=== PATIENT | female | born 1970 | race Caucasian/White ===

== ENCOUNTER 2016-12-08 13:26 | Emergency (ER) | payer SELFPAY ==
[~2016-12-08] VITALS: Ht 162.6 cm; Wt 107.0 kg
[2016-12-08] MEDS ORDERED: UNKNOWN BP MED (13:37)
[2016-12-08] MEDS ORDERED: HYDROCODONE/ACETAMINOPHEN 5/325MG TABLET PO ONE (15:15)
[2016-12-08 15:17] LABS: CLARITY URINE CLOUDY (CLEAR); COLOR URINE YELLOW (YELLOW); GLUCOSE URINE NEGATIVE (NEGATIVE); KETONES URINE NEGATIVE (NEGATIVE); LEUKOCYTE ESTERASE URINE NEGATIVE (NEGATIVE); NITRITE URINE NEGATIVE (NEGATIVE); OCCULT BLOOD URINE NEGATIVE (NEGATIVE); PROTEIN URINE NEGATIVE (NEGATIVE); SPECIFIC GRAVITY URINE 1.012 (1.005-1.030); UROBILINOGEN URINE 0.2 E.U./dL (0.2-1.0)
[2016-12-08 15:33] LABS: BASOPHILS % 1.4 % (0.0-2.0); EOSINOPHILS % 2.2 % (0.0-5.0); HEMATOCRIT. 34.6 % (36.0-48.0); LYMPHOCYTES % 38.4 % (20.0-50.0); MEAN CORPUSCULAR HEMOGLOBIN 29.5 pg (28.0-32.0); MEAN CORPUSCULAR VOLUME 85.5 fL (81.0-99.0); MEAN PLATELET VOLUME 9.8 fl (7.4-10.4); MONOCYTES % 9.2 % (2.0-8.0); NEUTROPHILS % 48.8 % (40.0-76.0); PLATELET 242 x1000/uL (130-400); RED BLOOD CELL COUNT 4.05 mill/uL (4.2-5.4); RED CELL DISTRIBUTION WIDTH 13.2 % (11.6-14.6)
[2016-12-08 15:38] LABS: CHLORIDE 107 mEq/L (98-107)
[2016-12-08 15:43] LABS: CARBON DIOXIDE 28 mEq/L (21-32)
[2016-12-08 15:54] LABS: HCG SCREEN NEGATIVE
[2016-12-08] MEDS ORDERED: KETOROLAC 60MG/2ML VIAL IM ONE (17:30)
[2016-12-08 17:46] VITALS: BP 194/93
== END 2016-12-08 17:51 | disposition home or self-care (01) ==
LOC: ER 13:26
DX: N85.00 Endometrial hyperplasia, unspecified (principal); R10.2 Pelvic and perineal pain; I10 Essential (primary) hypertension; E78.00 Pure hypercholesterolemia, unspecified; Z88.0 Allergy status to penicillin
CPT/HCPCS: 36415; 76830; 76856; 80053; 81001; 84703; 85025; 96372; 99285; J1885

== ENCOUNTER 2022-12-18 23:38 | Emergency (ER) | payer BC ==
[~2022-12-18] VITALS: Ht 167.6 cm; Wt 105.0 kg
[~2022-12-18 23:38] MED LIST: UNKNOWN BP MED
[2022-12-18 23:55] VITALS: O2SAT 97
[2022-12-19] MEDS ORDERED: LORAZEPAM 1MG TABLET PO ONE (00:15)
[2022-12-19] MEDS ORDERED: ACETAMINOPHEN 325MG TABLET PO ONE (00:15)
[2022-12-19 00:25] LABS: BASOPHILS % 0.4 % (0.0-2.0); EOSINOPHILS % 4.2 % (0.0-5.0); HEMATOCRIT. 32.1 % (36.0-48.0); HEMOGLOBIN. 10.8 g/dL (12.0-16.0); LYMPHOCYTES % 37.5 % (20.0-50.0); MEAN CORPUSCULAR HEMOGLOBIN 27.3 pg (28.0-32.0); MEAN CORPUSCULAR HGB CONC 33.7 g/dL (31.0-37.0); MEAN CORPUSCULAR VOLUME 81.2 fL (81.0-99.0); MEAN PLATELET VOLUME 8.9 fl (7.4-10.4); MONOCYTES % 13.9 % (2.0-8.0); PLATELET 308 x1000/uL (130-400); RED BLOOD CELL COUNT 3.96 mill/uL (4.2-5.4); RED CELL DISTRIBUTION WIDTH 14.7 % (11.6-14.6); WHITE BLOOD COUNT 5.8 x1000/uL (4.5-11.0)
[2022-12-19 00:27] LABS: CHLORIDE 108 mEq/L (98-107); INDEX HEMOLYSI 1 (1-3); INDEX ICTERIC 1 (1-4); INDEX LIPEMIC 1 (1-3); POTASSIUM 3.6 mEq/L (3.5-5.1); SODIUM 138 mEq/L (136-145)
[2022-12-19 00:33] LABS: HCG SCREEN NEGATIVE
[2022-12-19] MEDS ORDERED: FAMOTIDINE 20MG TABLET PO ONE (00:45)
[2022-12-19 01:03] LABS: ALBUMIN 3.6 g/dL (3.4-5.0); CALCIUM 8.7 mg/dL (8.5-10.1); CARBON DIOXIDE 25 mEq/L (21-32); GLUCOSE 123 mg/dL (70-105)
[2022-12-19 01:19] LABS: UREA NITROGEN BLOOD 7 mg/dL (7-21)
[2022-12-19 01:39] LABS: ALANINE AMINOTRANSFERASE 32 IU/L (13-61); ASPARTATE AMINOTRANSFERASE 21 IU/L (15-37); BILIRUBIN TOTAL 0.2 mg/dL (0.1-1.0); CREATININE 0.6 mg/dL (0.6-1.3); ETHANOL BLOOD < 10 mg/dL (-10)
[2022-12-19 01:42] LABS: TROPONIN I HIGH SENSITIVITY 5 ng/L (<54)
[2022-12-19 03:45] VITALS: BP 150/76; PULSE 59; RESP 14; TEMP 98.1
[2022-12-19 04:03] LABS: *AMPHETAMINES SCREEN URINE NEGATIVE (NEGATIVE); *BARBITURATES SCREEN URINE NEGATIVE (NEGATIVE); *BENZODIAZEPINES SCREEN URINE NEGATIVE (NEGATIVE); *COCAINE SCREEN URINE NEGATIVE (NEGATIVE); CANNABINOID URINE SCREEN NEGATIVE (NEGATIVE); ECSTASY MDMA SCREEN URINE NEGATIVE (NEGATIVE); METHADONE URINE SCREEN NEGATIVE (NEGATIVE); OPIATES URINE SCREEN NEGATIVE (NEGATIVE); PHENCYCLIDINE URINE SCREEN NEGATIVE (NEGATIVE)
== END 2022-12-19 03:58 | disposition home or self-care (01) ==
LOC: ER 23:38
DX: R07.89 Other chest pain (principal); I10 Essential (primary) hypertension; R06.02 Shortness of breath; Z98.890 Other specified postprocedural states
CPT/HCPCS: 36415; 71045; 93005; 99285; 80053; 80305; 80320; 84703; 85025; 84484; 70450; Z7610 ×3; G0480

== ENCOUNTER 2023-01-24 11:21 | Emergency (ER) | payer BC, MEDICAID ==
[~2023-01-24] VITALS: Ht 170.2 cm; Wt 104.0 kg
[2023-01-24 11:36] VITALS: O2SAT 100
[2023-01-24] MEDS ORDERED: ACETAMINOPHEN 500MG TABLET PO ONE (12:15)
[2023-01-24] MEDS ORDERED: ACET-2708 MT ×3 (13:51→13:55)
[2023-01-24 13:53] VITALS: BP 167/98; PULSE 86; RESP 18; TEMP 98.4
== END 2023-01-24 15:13 | disposition home or self-care (01) ==
LOC: ER 11:38
DX: S50.812A Abrasion of left forearm, initial encounter (principal); I10 Essential (primary) hypertension; Z88.0 Allergy status to penicillin; Z98.890 Other specified postprocedural states; X58.XXXA Exposure to other specified factors, initial encounter; Y93.89 Activity, other specified; Y92.89 Other specified places as the place of occurrence of the external cause; Y99.8 Other external cause status
CPT/HCPCS: 73030; 73060; 73090; 99284; Z7610